=== PATIENT | female | born 1950 | race African-American/Black ===

== ENCOUNTER → 2019-11-19 | Outpatient (CLI) | payer MEDICARE ==
--- NOTE | 2019-11-19 13:01 | RADIOLOGY REPORT (SQ) ---
EXAM DESCRIPTION: VENOUS UNILATERAL UPPER IMAGES COMPLETED DATE/TIME: 11/19/2019 10:00 am REASON FOR STUDY: JUGULAR VENOUS ENGORGEMENT I87.8 OTHER SPECIFIED DISORDERS OF VEINS I10 ESSENTIA L (PRIMARY) HYPERTENSION COMPARISON: None. TECHNIQUE: Dynamic and static light scale and color images acquired of the right arm venous system. S elected spectral images acquired with additional compression and augmentation maneuvers. The contrala teral subclavian vein and internal jugular vein were also imaged. Images stored on PACS. LIMITATIONS: None. FINDINGS: INTERNAL JUGULAR VEIN: Normal phasicity, compression, augmentation. No visualized echogeni c material on light scale. No defects on color images. Comparison opposite side normal. SUBCLAVIAN VEIN: Normal compression, augmentation. No visualized echogenic material on light scale. No defects on color images. AXILLARY VEIN: Normal compression, augmentation. No visualized echogenic material on light scale. No d efects on color images. BRACHIAL VEIN: Normal compression, augmentation. No visualized echogenic material on light scale. No d efects on color images. BASILIC VEIN: Normal compression, augmentation. No visualized echogenic material on light scale. No de fects on color images. CEPHALIC VEIN: Normal compression, augmentation. No visualized echogenic material on light scale. No d efects on color images. OTHER: No other significant finding. CONTRALATERAL SUBCLAVIAN VEIN AND INTERNAL JUGULAR VEIN: Normal phasicity, compression and augmentation. No visualized echogenic material on light scale. No de fects on color images. IMPRESSION: NO EVIDENCE DVT OR SVT IN THE RIGHT ARM. TECHNICAL DOCUMENTATION: JOB ID: [id number] 2010 [employer]- All Rights Reserved Reading location - IP/workstation name: [email or web address]
--- NOTE | 2019-11-19 19:58 | XCELERA REPORT ---
[address] [address] Transthoracic Echocardiogram Report Name: SUKI GARCIA Age: 69 yrs Gender: Female : 1950 Patient Status: Outpatient Patient Location: [facility] Study Date: 11/19/2019 08:21 AM Height: 66 in Weight: 240 lb BSA: 2.2 m2 Procedure: A complete two-dimensional transthoracic echocardiogram was performed (2D, M-mode, spectral and color flow Doppler). The study was technically adequate with some images being suboptimal in quality. Reason For Study: HTN Ordering Physician: PAT WERNER Performed By: Ai Morales Interpretation Summary LEFT VENTRICLE: LV Systolic function: LVEF is felt to be at lower limits of normal. Best estimate is approximately LVEF is approximately 55 %. LV Diastolic Function: Grade II diastolic dysfunction noted. Wall motion: No definite regional wall motion abnormalities are noted. Left ventricular chamber size: is within normal limit. Left ventricular wall thickness: is increased indicative of Mild LVH. RIGHT VENTRICLE: RV systolic function: is felt to be within normal limit. Right Ventricle Size: is within normal limits. LEFT ATRIUM size: is mildly dilated. RIGHT ATRIUM size: is within normal limit. INTER ATRIAL SEPTUM: No definite atrial septal defect noted however a small PFO could be missed. AORTIC ROOT: seems to be within normal limits. ASCENDING AORTA: is not well visualized. INFERIOR VENA CAVA: was not well visualized. VALVES: MITRAL VALVE: Leaflets are mildly thickened. Mobility seems to be within normal limits. Mitral Regurgitation: mild mitral regurgitation is noted. Mitral Stenosis: No mitral stenosis noted. Mitral valve prolapse: none noted. AORTIC VALVE: seems to be trileaflet with mild thickening but adequate excursion. Aortic stenosis: No aortic stenosis noted. Aortic regurgitation: mild aortic incompetence noted. TRICUSPID VALVE: mobility and structures within normal limit. Tricuspid stenosis: no tricuspid stenosis noted. Tricuspid regurgitation: Trace tricuspid regurgitation noted. Estimated RVSP: cannot be accurately commented upon but possibly at upper limit of normal. PULMONARY VALVE: was not well visualized but no significant abnormalities suspected. Pulmonary stenosis: no pulmonary stenosis noted. Pulmonary regurgitation: no significant pulmonary regurgitation noted. MASSES AND THROMBUS: No definite intracardiac thrombus or masses are noted. PERICARDIUM: No pericardial effusion was noted. IMPRESSION: 1. Low Normal LVEF. 2. Mild LVH noted. 3. Grade II [mild] Diastolic Dysfunction noted. 4. Mild aortic, mild mitral, trace tricuspid regurgitation noted. 5. LA is mildly dilated. MMode/2D Measurements & Calculations RVDd: 3.4 cm LVIDd: 4.8 cm FS: 39.3 % Ao root diam: 3.1 cm IVSd: 1.0 cm LVIDs: 2.9 cm EDV(Teich): 107.6 ml Ao root area: 7.6 cm2 LVPWd: 1.0 cm ESV(Teich): 32.6 ml LA dimension: 3.5 cm EF(Teich): 69.7 % Doppler Measurements & Calculations MV E max jorge: MV P1/2t max jorge: Ao V2 max: AI max jorge: 59.2 cm/sec 59.7 cm/sec 118.3 cm/sec 433.0 cm/sec MV A max jorge: MV P1/2t: 97.2 msec Ao max PG: AI max P.0 mmHg 92.8 cm/sec MVA(P1/2t): 2.3 cm2 5.6 mmHg AI dec slope: MV E/A: 0.64 MV dec slope: 177.5 cm/sec2 AI P1/2t: 714.5 msec 180.0 cm/sec2 MV dec time: 0.32 sec LV V1 max PG: PA V2 max: TR max jorge: AV P1/2t-pr_phl: 2.7 mmHg 82.4 cm/sec 244.3 cm/sec 714.5 msec LV V1 max: PA max P.7 mmHg TR max P.9 cm/sec 23.9 mmHg MV P1/2t-pr_phl: 97.2 msec : PAT WERNER Shyamal
== END ==
LOC: SP 07:33
PROVIDERS: ATTEND Registered Nurse
DX: I87.8 Other specified disorders of veins (principal); I51.89 Other ill-defined heart diseases
CPT/HCPCS: 93306; 93971

== ENCOUNTER → 2019-12-06 | Outpatient (CLI) | payer MEDICARE, OTHER ==
--- NOTE | 2019-12-06 09:49 | WOMENS IMAGING REPORT ---
EXAM DESCRIPTION: BONE DENSITY HIP/SPINE IMAGES COMPLETED DATE/TIME: 12/06/2019 9:40 am REASON FOR STUDY: Z78.0 ASYMPTOMATIC MENOPAUSAL STATE Z78.0 ASYMPTOMATIC MENOPAUSAL STATE COMPARISON: None. TECHNIQUE: Dual-Energy X-ray Absorptiometry (DEXA) of the AP Spine and Hip. LIMITATIONS: None. FINDINGS: LUMBAR SPINE: The bone mineral density (BMD) measured from L1-L4 in the AP projection correlates with a T-score of 0.6, which is normal as defined by the World Health Organization. BMD Change vs Baseline: N/A HIP: The bone mineral density (BMD) measured in the left hip correlates with a T-score of -0.1, which is n ormal as defined by the World Health Organization. BMD Change vs Baseline: N/A 10 year Fracture Risk Assessment: Major Osteoporotic Fracture: Not available. Hip Fracture: Not available. IMPRESSION: 1. LUMBAR SPINE WHO CLASSIFICATION: NORMAL. 2. HIP WHO CLASSIFICATION: NORMAL. OVERALL ASSESSMENT: WHO CLASSIFICATION: NORMAL. COMMENT: The World Health Organization defines low BMD as follows: T-score: Normal: At or above -1.0 Osteopenia: Between -1.0 and -2.5 Osteoporosis: At or below -2.5 without fractures Established osteoporosis: At or below -2.5 with fractures In general, you may wish to consider: Diagnosis Treatment Follow-up DEXA Normal BMD Prevention 2-3 years Osteopenia Prevention/Therapy 1-2 years Osteoporosis Therapy Yearly TECHNICAL DOCUMENTATION: JOB ID: [id number] 2010 [email or web address]- All Rights Reserved Reading location - IP/workstation name: [email or web address]
== END ==
LOC: WI 09:04
PROVIDERS: ATTEND Registered Nurse
DX: Z78.0 Asymptomatic menopausal state (principal)
CPT/HCPCS: 77080